=== PATIENT | male | born 1950 | race Asian ===

== ENCOUNTER 2017-02-13 18:34 | Inpatient (IN) | payer OTHER ==
--- NOTE | 2017-02-13 18:46 | EDPHY ---
H & P Time Seen by Provider: 02/13/17 18:46 HPI/ROS: CHIEF COMPLAINT: Arthralgias, neck pain, abdominal bloating HISTORY OF PRESENT ILLNESS: The patient presents to the ED for evaluation of several days of intermittent symptoms including abdominal bloating, diffuse body ache, jaw discomfort and subjective fevers. The patient has a history of diabetes. He denies any chest pain or shortness of breath. The patient reports he is visiting from [place]. He has been in the [place] for 2 months. There have been no sick contacts at home. The patient denies any urinary complaints. In the emergency department the patient complains primarily of low back pain. REVIEW OF SYSTEMS: A comprehensive 10 point review of systems is otherwise negative aside from elements mentioned in the history of present illness. Source: Patient Exam Limitations: No limitations - Medical/Surgical History PMH: Past medical history: Hypertension, diabetes - Family History Significant Family History: No pertinent family hx - Social History Smoking Status: Never smoked - Physical Exam Exam: General Appearance: Alert, no distress Eyes: Pupils equal and round no pallor or injection ENT, Mouth: Mucous membranes moist Respiratory: There are no retractions, lungs are clear to auscultation Cardiovascular: Regular rate and rhythm Gastrointestinal: Abdomen is soft and nontender, no masses, bowel sounds normal Neurological: A&O, normal motor function, normal sensory exam, normal cranial nerves Skin: Warm and dry, no rashes Musculoskeletal: Neck is supple nontender Extremities: symmetrical, full range of motion Constitutional: Initial Vital Signs Temperature (C) 37.1 C 02/13/17 18:43 Heart Rate 104 H 02/13/17 18:43 Respiratory Rate 20 02/13/17 18:43 Blood Pressure 152/95 H 02/13/17 18:43 O2 Sat (%) 98 02/13/17 18:43 O2 Delivery Mode Room Air Allergies/Adverse Reactions: No Known Allergies Allergy (Unverified 02/13/17 18:42) Home Medications: Medication Instructions Recorded Daonil 02/13/17 Galvus 02/13/17 Riomet 02/13/17 Medical Decision Making - Diagnostics EKG Interpretation: EKG: Complete interpretation has been separately recorded in the [employer] archive. Summary impression: Sinus rhythm, ST segment elevation noted in the inferior leads, slight reciprocal changes noted in leads I and aVL. No prior EKG to compare. Imaging Results: Imaging Impressions Chest X-Ray 02/13/17 19:28 Impression: Query airways disease. ED Course/Re-evaluation: The patient presents to the ED with a myriad of symptoms over the past several days including abdominal bloating, neck pain, back pain, leg pain and the subjective fevers. The patient had no complaints of chest pain or shortness of breath. The patient was noted to be afebrile upon arrival. The patient's EKG does demonstrate evidence of ST segment elevation. A cardiac alert was initiated immediately after his EKG was performed. The patient's initial troponin has returned at 36.3. The patient does have an elevated creatinine of 1.8. The patient has hyponatremia with a sodium of 115. The patient was seen in consultation by Dr. Norman Givens in the emergency department. Given the patient's renal failure and significant metabolic abnormality as well as the EKG and troponin changes which are consistent with an event several days old an additional workup was undertaken in the emergency department to determine the risk and benefit of an acute intervention. Consultation was made with Dr. Harden from the hospitalist service who is also aware of the patient. Dr. Givens has performed a bedside echocardiogram. His ejection fraction is above 40%. At this point time he believes the event is remote. He would like to have the patient heparinized and admitted to the intensive care unit under the care of the hospitalist service Differential Diagnosis: Differential diagnosis considered includes acute coronary syndrome, metabolic abnormality, perforated ulcer, critical anemia, renal failure, bacteremia, sepsis Critical Care Time: Critical care time exclusive of procedures and exclusive of the PA's time was 45 minutes, performed by myself, Frederci Head MD. The patient presents to the ED with an ischemic EKG, markedly abnormal troponin and critical sodium level. The patient required emergent consultation by Cardiology and will be admitted to the intensive care unit. - Data Points Laboratory Results: Laboratory Results 02/13/17 19:24 02/13/17 19:24 02/13/17 02/13/17 19:24 19:24 WBC 7.37 10^3/uL 10^3/uL (3.80-9.50) RBC 3.43 10^6/uL L 10^6/uL (4.40-6.38) Hgb 10.3 g/dL L g/dL (13.7-17.5) Hct 27.6 % L % (40.0-51.0) MCV 80.5 fL L fL (81.5-99.8) MCH 30.0 pg pg (27.9-34.1) MCHC 37.3 g/dL H g/dL (32.4-36.7) RDW 13.2 % % (11.5-15.2) Plt Count 151 10^3/uL 10^3/uL (150-400) MPV 11.2 fL fL (8.7-11.7) Neut % (Auto) 74.0 % % (39.3-74.2) Lymph % (Auto) 10.9 % L % (15.0-45.0) [place] % (Auto) 12.6 % % (4.5-13.0) Eos % (Auto) 1.8 % % (0.6-7.6) Baso % (Auto) 0.4 % % (0.3-1.7) Nucleat RBC Rel Count 0.0 % % (0.0-0.2) Absolute Neuts (auto) 5.46 10^3/uL 10^3/uL (1.70-6.50) Absolute Lymphs (auto) 0.80 10^3/uL L 10^3/uL (1.00-3.00) Absolute Monos (auto) 0.93 10^3/uL H 10^3/uL (0.30-0.80) Absolute Eos (auto) 0.13 10^3/uL 10^3/uL (0.03-0.40) Absolute Basos (auto) 0.03 10^3/uL 10^3/uL (0.02-0.10) Absolute Nucleated RBC 0.00 10^3/uL 10^3/uL (0-0.01) Immature Gran % 0.3 % % (0.0-1.1) Immature Gran # 0.02 10^3/uL 10^3/uL (0.00-0.10) Sodium 115 mEq/L L* mEq/L (134-144) Potassium 4.4 mEq/L mEq/L (3.5-5.2) Chloride 85 mEq/L L mEq/L (97-110) Carbon Dioxide 22 mEq/l mEq/l (22-31) Anion Gap 8 mEq/L mEq/L (8-16) BUN 14 mg/dL mg/dL (7-23) Creatinine 1.8 mg/dL H mg/dL (0.7-1.3) Estimated GFR 38 Glucose 105 mg/dL H mg/dL (70-100) Calcium 8.6 mg/dL mg/dL (8.5-10.4) Total Bilirubin 0.8 mg/dL mg/dL (0.1-1.4) Conjugated Bilirubin 0.3 mg/dL mg/dL (0.0-0.5) Unconjugated Bilirubin 0.5 mg/dL mg/dL (0.0-1.1) AST 126 IU/L H IU/L (17-59) ALT 31 IU/L IU/L (21-72) Alkaline Phosphatase 44 IU/L IU/L (38-126) Troponin I 36.200 ng/mL H ng/mL (0.000-0.034) Total Protein 5.9 g/dL L g/dL (6.3-8.2) Albumin 3.3 g/dL L g/dL (3.5-5.0) Medications Given: Discontinued Medications Aspirin (Aspirin) 324 mg PO EDNOW ONE Stop: 02/13/17 19:18 Last Admin: 02/13/17 19:27 Dose: 324 mg Departure - Departure Disposition: [facility] In[facility] Acute Clinical Impression: Hyponatremia, Acute inferior myocardial infarction, Renal failure Condition: Critical
--- NOTE | 2017-02-13 19:14 | CPEKG ---
Heart Rate: 94 RR Interval: 638 P-R Interval: 176 QRSD Interval: 84 QT Interval: 368 QTC Interval: 461 P [place]: 52 QRS [place]: -4 T Wave [place]: 58 EKG Severity - ABNORMAL ECG - EKG Impression: SINUS RHYTHM EKG Impression: INFERIOR INFARCT, ACUTE EKG Impression: CONSIDER POSTERIOR WALL INVOLVEMENT Electronically Signed By: Frederic Head 13-Feb-2017 21:13:51
[2017-02-13] MEDS ORDERED: ASPIRIN 81 MG CHEWABLE TAB PO ONE (19:17)
[2017-02-13 19:30] LABS: % IMMATURE GRANULYOCYTES 0.3 % (0.0-1.1); ABSOLUTE IMMATURE GRANULOCYTES 0.02 10^3/uL (0.00-0.10); ADD DIFF? NO; ADD MORPH? NO; ADD SCAN? NO; ATYPICAL LYMPHOCYTE FLAG 0 (0-99); FRAGMENT RBC FLAG 0 (0-99); HEMATOCRIT 27.6 % (40.0-51.0); HEMOGLOBIN 10.3 g/dL (13.7-17.5); LEFT SHIFT FLG 0 (0-99); LIPEMIA HEMOLYSIS FLAG 90 (0-99); MEAN CELL HEMOGLOBIN CONCENTR. 37.3 g/dL (32.4-36.7); MEAN CELL VOLUME 80.5 fL (81.5-99.8); MEAN PLATELET VOLUME 11.2 fL (8.7-11.7); PLATELET CLUMPS FLAG 0 (0-99); PLATELET COUNT 151 10^3/uL (150-400); RED BLOOD CELL COUNT 3.43 10^6/uL (4.40-6.38); RED CELL DISTRIBUTION WIDTH 13.2 % (11.5-15.2)
[2017-02-13] MEDS ORDERED: LIDOCAINE 1% 300 MG/30 ML SDV ONE (19:39)
[2017-02-13] MEDS ORDERED: fentaNYL 100 MCG/2 ML INJ ONE (19:39)
[2017-02-13] MEDS ORDERED: IOPAMIDOL (ISOVUE-370) 150 ML BTL IV ONE (19:40)
[2017-02-13] MEDS ORDERED: MIDAZOLAM 2 MG/2 ML VIAL ONE (19:40)
[2017-02-13 19:52] LABS: ALANINE AMINOTRANSFERASE 31 IU/L (21-72); ALBUMIN 3.3 g/dL (3.5-5.0); ALKALINE PHOSPHATASE 44 IU/L (38-126); ANION GAP 8 mEq/L (8-16); ASPARTATE AMINOTRANSFERASE 126 IU/L (17-59); BILIRUBIN,TOTAL 0.8 mg/dL (0.1-1.4); BILIRUBIN-CONJUGATED 0.3 mg/dL (0.0-0.5); BILIRUBIN-UNCONJUGATED 0.5 mg/dL (0.0-1.1); CALCIUM 8.6 mg/dL (8.5-10.4); CARBON DIOXIDE 22 mEq/l (22-31); CHLORIDE 85 mEq/L (97-110); CREATININE 1.8 mg/dL (0.7-1.3); GLOMERULAR FILTRATION RATE 38; POTASSIUM 4.4 mEq/L (3.5-5.2); TOTAL PROTEIN 5.9 g/dL (6.3-8.2)
[2017-02-13 20:19] LABS: GLUCOSE 105 mg/dL (70-100)
[2017-02-13 20:21] LABS: SODIUM 115 mEq/L (134-144)
[2017-02-13] MEDS ORDERED: HEPARIN 10,000 UNIT/10 ML MDV IVP PRN (21:16)
[2017-02-13] MEDS ORDERED: HEPARIN 10,000 UNIT/10 ML MDV IVP ONE (21:16)
[2017-02-13 21:31] LABS: INR 1.09 (0.83-1.16)
[2017-02-13 21:32] LABS: APTT 32.6 SEC (23.0-38.0)
--- NOTE | 2017-02-13 21:43 | GCON ---
[f rep st] CONSULTATION CHIEF COMPLAINT: We have been asked by Dr. Head to evaluate the patient as a cardiac alert. HISTORY OF PRESENT ILLNESS: Patient is a 66-year-old gentleman with risk factors including age, hype rtension, hyperlipidemia, and diabetes mellitus, who presented to the emergency department on with multiple aches and pains and generally not feeling well. The patient was in his usual state of health until the Friday prior to admission. At that time, he came down with what he thought was an upper gastrointestinal illness. He reported symptoms of upper chest discomfort extending into his arms, associated with nausea and belching. His symptoms continued throughout Friday and into Friday , and by Friday he was feeling generally much better. On Friday, he ended up falling on a futon and injured his hips and lower back resulting in multiple aches and pains, prompting him to seek furt her evaluation in the emergency department. In the emergency department, he had an EKG performed whi ch demonstrated sinus rhythm. Normal axis. Normal intervals. Inferior ST-segment elevation with de velopment of inferior Q-waves. His initial troponin was markedly elevated at 36. We were consulted to help in the further management of the patient. The patient denies a previous history of coronary artery disease. He does have multiple cardiac risk factors as noted above. The patient denies sympt oms of palpitations, orthopnea and PND. He has not had recurrent anginal symptoms since Friday when his initial symptomatology resolved. The patient denies a previous history of renal insufficiency. His last creatinine was 1.0 in November. PAST MEDICAL HISTORY: 1. Hypertension. 2. Hyperlipidemia. 3. Diabetes mellitus. MEDICATIONS: Please see medicine reconciliation form. ALLERGIES: No known drug allergies. SOCIAL HISTORY: Patient lives in [facility]. He came out to visit his son in [place]. He does not smoke . He denies problems with alcohol. FAMILY HISTORY: Noncontributory. REVIEW OF SYSTEMS: A 10-point review of systems is negative, except as noted in HPI. The patient do es report some calf discomfort with higher levels of exertion. PHYSICAL EXAMINATION: GENERAL: The patient is resting comfortably in bed. He does not appear to be in acute distress. VITAL SIGNS: Temperature is afebrile. Pulse is 99, blood pressure 134/83, resp iratory rate is 16, SaO2 is 100% on 2 L nasal cannula. HEENT: Normocephalic, atraumatic. Extraocul ar muscles intact. NECK: No JVD. No bruits. LUNGS: Clear to auscultation bilaterally. No crackl es auscultated. CARDIOVASCULAR: Regular rate and rhythm. S1, S2. No murmurs, rubs, or gallops autumn reciated. ABDOMEN: Soft, nontender. Normoactive bowel sounds. No hepatosplenomegaly. Aorta could not be adequately palpated. EXTREMITIES: No clubbing, cyanosis, or edema. SKIN: No evidence of r ashes. NEURO: Patient is awake, alert and oriented x3. LABORATORY: Sodium is 115, potassium 4.4, chloride 85, carbon dioxide 22, BUN 14, creatinine 1.8. A ST is elevated at 126, ALT is 31. Troponin is elevated at 36.2. White blood cell count is 7.37, hem oglobin 10.3, hematocrit 27.6, platelet count is 151. EKG demonstrates sinus rhythm with an evolving inferior myocardial infarction. Echocardiogram: Limited bedside echocardiogram demonstrated left ventricular ejection fraction appro ximately 40% with inferior inferoseptal and posterior hypokinesis. The apex had normal contractility . ASSESSMENT AND PLAN: Patient is a 66-year-old gentleman, who presents with an evolving inferior myoc ardial infarction. The onset of his infarction was likely Friday into Friday based on symptomatology and EKG findings. He is currently pain free. He denies symptoms of congestive heart failure. Revi ewed treatment strategies with the patient and his son, including going to the cardiac catheterizatio n laboratory as well as a more conservative management strategy with admitting to the hospital for ob servation and medical management with subsequent stress testing. Patient wished to pursue the more c onservative route. I think that is a reasonable strategy given his myocardial infarction is likely a lready been completed, and he has at risk for angiography given renal insufficiency. We will continu e to follow along with the patient. /[id number]/MODL
[2017-02-13] MEDS: HEPARIN/DEXTROSE 500 ML IV SCH (22:03)
[2017-02-13 22:10] LABS: CK-MB INTERPRETATION NEGATIVE (NEGATIVE)
[2017-02-13] MEDS: CARVEDILOL 3.125 MG TAB PO SCH (22:14)
[2017-02-13] MEDS ORDERED: CARBOXYMETHYLCELLULOSE 0.5% 0.4 ML DROPERETTE EACHEYE PRN (22:31)
[2017-02-13] MEDS ORDERED: SODIUM CHLORIDE 1,000 MG TAB PO ONE (22:34)
--- NOTE | 2017-02-13 22:39 | PDGENHP ---
History and Physical History and Physical: HISTORY AND PHYSICAL CC: Diffuse pains Please note that obtaining history from this patient is quite difficult and I am not sure that the information that we have from him in terms of history is entirely reliable. We have no available records as he is from [place]. HISTORY: This gentleman is visiting from [place] as he has family here in [place]. He has been in this country for about 6 weeks. He comes into the ER today with complaint of numerous aches and pains including neck chest abdomen legs. Some of these pains came within last there to as he had fallen a couple days ago and became trapped between a piece of furniture in wall in it took apparently about 50 minutes to get him extracted from that position. He does not feel that his any concerning injury and he does not have anything that sounds like skeletal pain. However he he also has been having significant discomfort in epigastrium and low sternal area that he calls a gas pain. He thinks this is from eating too much cauliflower. There was no nausea, shortness of breath, fever, or change in bowel habits and he has been eating well. Assessment here in the ER revealed area elevated cardiac troponin and abnormal EKG leading to a cardiac alert with ST elevations. In reviewing his story though his symptoms go back at least 4 days and have actually resolved at this time in terms of the symptoms that sound cardiac in nature. He has an echocardiogram with a reasonable ejection fraction at 45% and some other acute medical issues and it was elected not to take him to the angiography suite at this time. The patient says he otherwise feels fine. Among his medical issues is a low sodium level. He does take some hydrochlorothiazide, but has no prior history of low sodium that he knows of, no recent nausea vomiting or diarrhea, and says he has been eating normally recently. He has not noticed any swelling in his ankles are elsewhere and no orthopnea. In addition has been discovered that is high creatinine at 2 with a baseline of 1.0 as best we know. There is no previous history of renal disease but he is diabetic. ROS: A comprehensive 10 system review revealed no other significant findings. Notably despite all the digestive type symptoms, and the other discomforts he says he has had normal appetite for him and has been eating well. PAST MEDICAL HISTORY: Type 2 diabetes mellitus - notably the patient says that he controls this by eating a very good diabetic diet but while he is telling me this he is finishing a package of cookies that he just opened and 8 in its entirety. He also tells me that he can control his sugar by walking slower as he has been able to calculate that the faster he walks the higher the blood sugar becomes. He has used he says of Fitbit and EPS device to help figure this out. He does note that he has always refused and will continue to refuse to take insulin. The patient denies any history of heart disease, yet I notice that his medications include nitroglycerin, Lipitor, hydrochlorothiazide, and angiotensin receptor corey FAMILY MEDICAL HISTORY: Denies family heart history SOCIAL HISTORY: Here from [facility] initially visiting his daughter in [place] now visiting his son here in [place]. His son apparently is working on a post doctoral theses at this time. No tobacco MEDICATIONS: The patients list has been reconciled by our clinical pharmacist in the EMR. I have reviewed the list and ordered appropriate medicines. PHYSICAL EXAMINATION: Vital Signs: Some hypertension, otherwise stable without fever Knocker Out: Sinus rhythm with some ST elevations noted Examination: General: alert, oriented, good mentation, relaxed Skin: warm, dry, good color, no rash HEENT: normal Neck: no mass or jvd Resps: relaxed Lungs: clear breath sounds Heart: regular, no murmur Abdomen: soft, nondistended, nontender, +BS, no mass Upper Extremities: normal Lower Extremities: no edema, warm No Bleeding or bruising Neurologic: normal speech/language, normal assistant professor of life sciences, no focal weakness IV site: looks normal LABORATORY DATA: Troponin elevated at 37, CPK pending Creatinine elevated to with her reported as baseline of 1 Sodium is 119 Microcytic anemia with a hemoglobin of 10 RADIOLOGY STUDIES: Unremarkable chest x-ray with normal heart size and no heart failure or infiltrates 12 LEAD EKG: -Sinus rhythm with apparent a suggesting evolving acute inferior [place] ASSESSMENT: -subacute myocardial infarction, inferior with sinus rhythm and absence of heart failure. It appears his symptoms began probably 4 days ago -presumed acute renal failure but of really uncertain chronicity with a baseline creatinine of 1 from an unknown time in a diabetic -hyponatremia in a euvolemic patient taking hydrochlorothiazide -microcytic anemia of unknown chronicity or cause -type 2 diabetes mellitus on oral medications PLANS: -patient is admitted inpatient status to the intensive care unit at this time due to critical illness -Dr. Givens continue to follow patient from the cardiac standpoint. At this point the patient is reasonably stable and we can continue with beta corey, angiotensin corey, his nitroglycerin, and daily aspirin -at some point he will need to go for angiography if he will agree to that -for sodium for now start with oral fluid restriction and some oral sodium supplements, follow his sugars sodiums very closely and will hold hydrochlorothiazide, check urine sodium levels as a starting point; due to his use of hydrochlorothiazide I will delay ordering the urine sodium until he has been off the hydrochlorothiazide for day or two -check thyroid level -check iron levels and he will probably need other evaluation for his anemia beyond that and probably needs iron replacement -renal ultrasound and follow renal function closely. Due to his low sodium I am not giving him volume replacement trying to correct his sodium at this time. However if we get his sodium MAC in safer range it would be good to make sure that he is at least adequately hydrated to receive angiography dye for coronary angiography which is anticipated -follow and manage sugars as indicated by the numbers I have reviewed the patient's case in detail with Dr. Norman Givens and Frederic Head
[2017-02-13] MEDS ORDERED: ZOLPIDEM TARTRATE 5 MG TAB PO PRN (22:54)
[2017-02-13] MEDS ORDERED: ONDANSETRON 4 MG/2 ML VIAL IVP PRN (22:54)
[2017-02-13 23:58] LABS: CK-MB INTERPRETATION NEGATIVE (NEGATIVE)
[2017-02-14 00:59] LABS: ANION GAP 11 mEq/L (8-16); CALCIUM 7.5 mg/dL (8.5-10.4); CARBON DIOXIDE 19 mEq/l (22-31); CHLORIDE 92 mEq/L (97-110); CREATININE 1.6 mg/dL (0.7-1.3); GLOMERULAR FILTRATION RATE 43; GLUCOSE 82 mg/dL (70-100); POTASSIUM 3.8 mEq/L (3.5-5.2); SODIUM 122 mEq/L (134-144)
[2017-02-14 04:41] LABS: ALANINE AMINOTRANSFERASE 29 IU/L (21-72); ALBUMIN 3.1 g/dL (3.5-5.0); ALKALINE PHOSPHATASE 44 IU/L (38-126); ANION GAP 8 mEq/L (8-16); ASPARTATE AMINOTRANSFERASE 107 IU/L (17-59); BILIRUBIN,TOTAL 0.6 mg/dL (0.1-1.4); BILIRUBIN-CONJUGATED 0.4 mg/dL (0.0-0.5); BILIRUBIN-UNCONJUGATED 0.2 mg/dL (0.0-1.1); CALCIUM 7.8 mg/dL (8.5-10.4); CARBON DIOXIDE 21 mEq/l (22-31); CHLORIDE 87 mEq/L (97-110); CHOLESTEROL 84 mg/dL (140-220); CHOLESTEROL/HDL RATIO 2.71 RATIO (1.00-4.97); CREATININE 1.8 mg/dL (0.7-1.3); GLOMERULAR FILTRATION RATE 38; GLUCOSE 114 mg/dL (70-100); HIGH DENSITY LIPOPROTEIN 31 mg/dL (40-65); LDL/HDL RATIO 1.13 RATIO (1.00-3.64); LOW DENSITY LIPOPROTEIN 35 mg/dL (80-100); MAGNESIUM 2.1 mg/dL (1.6-2.3); NON-HIGH DENSITY LIPOPROTEIN 53 mg/dL (90-129); POTASSIUM 3.8 mEq/L (3.5-5.2); TOTAL PROTEIN 5.4 g/dL (6.3-8.2); TRIGLYCERIDE 90 mg/dL (40-150); VERY LOW DENSITY LIPOPROTEINS 18 mg/dL (8-25)
[2017-02-14 04:51] LABS: % SATURATION 9 % (20-55); TOTAL IRON BINDING CAPACITY 251 ug/dL (260-490)
[2017-02-14 05:02] LABS: SODIUM 116 mEq/L (134-144)
[2017-02-14] MEDS ORDERED: HEPARIN 5,000 UNIT/0.5 ML SYR SC SCH (06:00)
[2017-02-14] MEDS: CARVEDILOL 3.125 MG TAB PO SCH ×2 (08:20→18:08)
[2017-02-14] MEDS: LOSARTAN POTASSIUM 50 MG TAB PO SCH (08:21)
[2017-02-14] MEDS: ASCORBIC ACID 500 MG TAB PO SCH (08:21)
[2017-02-14] MEDS: MULTIVITAMINS 1 EACH TAB PO SCH (08:21)
--- NOTE | 2017-02-14 08:51 | CPEKG ---
Heart Rate: 89 RR Interval: 674 P-R Interval: 172 QRSD Interval: 86 QT Interval: 364 QTC Interval: 443 P [place]: 63 QRS [place]: -13 T Wave [place]: 83 EKG Severity - ABNORMAL ECG - EKG Impression: SINUS RHYTHM EKG Impression: INFERIOR INFARCT, recent EKG Impression: CONSIDER POSTERIOR WALL INVOLVEMENT Electronically Signed By: Kavin Nichols 14-Feb-2017 10:34:46
[2017-02-14] MEDS ORDERED: PERFLUTREN LIPID MICROSPHERES 1.1 MG/ML VIAL IV ONE (09:00)
[2017-02-14] MEDS: ACETAMINOPHEN 325 MG TAB PO PRN (09:08)
--- NOTE | 2017-02-14 09:56 | PDMN ---
Medical Necessity Medical necessity: Patient [place] [facility] My[place] Infarction - (subacute inf STEMI; troponin 39/+ CK-MB;/pain began 4 days prior; presumed ARF/Creat 1.8/baseline 1.0; hyponatremia; anemia, type 2 DM; anticipated LOS > 2 midnights for renal testing, poss cardiac angio, ongoing medical mgmt.)
[2017-02-14 11:03] LABS: ANION GAP 9 mEq/L (8-16); CALCIUM 8.3 mg/dL (8.5-10.4); CARBON DIOXIDE 21 mEq/l (22-31); CHLORIDE 86 mEq/L (97-110); CREATININE 1.9 mg/dL (0.7-1.3); GLOMERULAR FILTRATION RATE 36; GLUCOSE 81 mg/dL (70-100)
[2017-02-14 11:04] LABS: SODIUM 116 mEq/L (134-144)
[2017-02-14 11:16] LABS: POTASSIUM 4.2 mEq/L (3.5-5.2)
[2017-02-14] MEDS: [UNRECOGNIZED DRUG - OTHER] PO SCH ×2 (11:24→13:48)
[2017-02-14] MEDS ORDERED: [UNRECOGNIZED DRUG - OTHER] PO SCH (12:00)
[2017-02-14] MEDS ORDERED: METFORMIN PO SCH (12:00)
[2017-02-14] MEDS: NITROGLYCERIN PO SCH ×2 (12:07→18:08)
[2017-02-14 12:45] LABS: ANION GAP 11 mEq/L (8-16); CALCIUM 8.2 mg/dL (8.5-10.4); CARBON DIOXIDE 20 mEq/l (22-31); CHLORIDE 85 mEq/L (97-110); CREATININE 1.9 mg/dL (0.7-1.3); GLOMERULAR FILTRATION RATE 36; GLUCOSE 97 mg/dL (70-100); POTASSIUM 4.5 mEq/L (3.5-5.2)
[2017-02-14 12:48] LABS: SODIUM 116 mEq/L (134-144)
--- NOTE | 2017-02-14 13:43 | SOAPPROG ---
WANDY Progress Note Assessment/Plan: 1. IMI - Pt presented with an evolving inferior ME. His event was likely on 02/09 into 02/10 based on history. He was not taken to the catheterization laboratory as he denied symptoms of recurrent angina/CHF and had acute renal insufficiency. Peak CPK was 2047 and has trended down. Peak Troponin was 39.8. LVEF = 35 to 40% with inferior hypokinesis. Pt denies symptoms of angina and CHF. No significant arrhythmias on telemetry monitoring. --> continue asa, plavix, coreg, losartan, and atorvastatin. --> continue heparin for an additional 24 hours --> consider stress test for risk stratification. 2. HTN - BP well controlled on coreg and losartan. --> continue current therapy 3. Hyperlidemia - Pt is at goal on lipitor. --> continue current therapy 4. DM -appreciate hospitalist input 5. BO - appreciate hospitalist input. Consider nephrology consult Subjective: No chest pain No orthopnea or PND No significant arrhythmias overnight Objective: Vital Signs Temp Pulse Resp BP Pulse Ox 36.7 C 80 16 114/77 100 02/14/17 08:00 02/14/17 12:00 02/14/17 12:00 02/14/17 12:00 02/14/17 12:00 Laboratory Results 02/14/17 12:08 02/13/17 02/14/17 02/15/17 05:59 05:59 05:59 Intake Total 559 120 Output Total 725 Balance -166 120 PT 14.0 SEC (12.0-15.0) 02/13/17 19:24 INR 1.09 (0.83-1.16) 02/13/17 19:24 Physical Exam - Physical Exam General Appearance: alert, no apparent distress Respiratory: lungs clear Cardiac/Chest: regular rate, rhythm, systolic murmur Abdomen: non-tender, soft Skin: normal color Extremities: No pedal edema Neuro/Psych: alert ICD10 Worksheet Patient Problems: Problems Problem Status Onset Acute inferior myocardial infarction Acute Hyponatremia Acute Renal failure Acute
--- NOTE | 2017-02-14 14:11 | CPEKG ---
Heart Rate: 80 RR Interval: 750 P-R Interval: 158 QRSD Interval: 84 QT Interval: 384 QTC Interval: 443 P [place]: -9 QRS [place]: -13 EKG Severity - ABNORMAL ECG - EKG Impression: SINUS RHYTHM EKG Impression: INFERIOR INFARCT, recent EKG Impression: CONSIDER POSTERIOR WALL INVOLVEMENT Electronically Signed By: Kavin Nichols 15-Feb-2017 09:15:35
--- NOTE | 2017-02-14 14:14 | GCON ---
[f rep st] CONSULTATION BOARD CERTIFIED ORTHODONTIST CONSULTATION REASON FOR ADMISSION: Subacute myocardial infarction. HISTORY OF PRESENT ILLNESS: The patient is a very pleasant, 66-year-old male, who is originally from [place]. He has a past medical history including non-insulin diabetes, hypertension, hypercholesterole nehemiah, and possible coronary artery disease. He presents with complaints of chest pain. He is currently visiting the [facility]. He has been in the country for approximately 6 weeks. He was seen in the emergency room and subsequently admitted with the diagnosis of acute SC, currently sitting up in a c hair, resting comfortably. He is currently pain free. PAST MEDICAL HISTORY: As above. ALLERGIES: No known allergies to medications. SOCIAL HISTORY: No history of tobacco use. No history of alcohol use. He is visiting from [place]. CURRENT MEDICATIONS: Include Tylenol, vitamin C, aspirin, atorvastatin, Coreg, Galvus, Daonil, hepa rin, losartan, nitroglycerin, Definity, Zofran, and Ambien. PHYSICAL EXAM: VITAL SIGNS: Blood pressure is 96/62, pulse 85, respirations 17, temperature 36.7, ox ygen saturation 100% on room air. GENERAL: He is a mildly overweight, but very pleasant elderly male, who is resting comfortably, in no acute distress. HEENT: Eyes are PERRLA, EOMI. Throat shows no eryt lalita or tonsillar hypertrophy. NECK: Supple. There is no cervical adenopathy. HEART: Regular rate and rhythm with a 2/6 systolic murmur at left sternal border without radiation. LUNGS: Showed diminished breath sounds, but no wheeze. ABDOMEN: Soft, nontender. Bowel sounds are present in all 4 quadrants. EXTREMITIES: No clubbing, cyanosis, or edema. LABORATORIES: White count 7.3, hemoglobin 10, hematocrit 27, platelet count is 151. Sodium 116, pota ssium 4.2, chloride 86, CO2 21, BUN 14, creatinine 1.9, glucose is 137. Troponins are elevated at 3 8.6. Chest x-ray: Shows some mild peribronchial thickening. IMPRESSION: 1. Acute myocardial infarction. 2. Diabetes. 3. Acute renal failure. 4. Hyponatremia. RECOMMENDATIONS: 1. Agree with cardiology consult. 2. Agree with renal ultrasound. 3. Deep vein thrombosis and pulmonary embolus prophylaxis. 4. Stress ulcer prophylaxis. 5. Agree with beta corey, angiotensin converting enzyme inhibitor, nitroglycerin, and aspirin. 6. PT and OT. /[id number]/MODL
--- NOTE | 2017-02-14 14:31 | ASMTCMCOM ---
CM Note CM Note Notes: Chart reviewed, case discussed in rounds. Patient visiting from [place] and suffered VA with ARF. No angiogram secondary to renal insufficiency. Medical management at this point in time. Good family support, independent prior to admission. No identifiable needs at this point. CM to follow should needs arise. Date Signed: 02/14/2017 02:31 PM Electronically Signed By:Smitha Damon RN
--- NOTE | 2017-02-14 15:42 | HOSPPROG ---
Hospitalist Progress Note Assessment/Plan: 66 yo M w inferior STEMI STEMI: presented after completion w q waves already present per pt and cardiology, medical management stratehy chosed asa/statin/bb/arb on heparin gtt hyponatremia: urine lytes ordered suspect he is chronically low given absence of sx has been on hctz for > 30 years follow fluid restrict proph: heparin gtt dm: hold po meds start lispro ss dispo: inpt Subjective: case d/w marin. denies further CP. no sob. ekg w ongoing inferior ST elevations (interp by me) Objective: Vital Signs Temp Pulse Resp BP Pulse Ox 36.7 C 84 15 103/59 L 99 02/14/17 08:00 02/14/17 14:00 02/14/17 14:00 02/14/17 14:00 02/14/17 14:00 Laboratory Results 02/14/17 12:08 02/13/17 02/14/17 02/15/17 05:59 05:59 05:59 Intake Total 559 120 Output Total 725 Balance -166 120 PT 14.0 SEC (12.0-15.0) 02/13/17 19:24 INR 1.09 (0.83-1.16) 02/13/17 19:24 - Physical Exam Constitutional: no apparent distress, appears nourished Eyes: PERRL, anicteric sclera Ears, Nose, Mouth, Throat: moist mucous membranes, hearing normal Cardiovascular: regular rate and rhythym, no murmur, rub, or gallop Respiratory: no respiratory distress, no rales or rhonchi Gastrointestinal: normoactive bowel sounds, soft, non-tender abdomen Genitourinary: no bladder fullness, No esparza in urethra Skin: warm, normal color Musculoskeletal: full muscle strength, no muscle tenderness Neurologic: AAOx3 ICD10 Worksheet Patient Problems: Problems Problem Status Onset Acute inferior myocardial infarction Acute Hyponatremia Acute Renal failure Acute
--- NOTE | 2017-02-14 15:44 | PDCONSULT ---
Piping Manager Note: Assessment/Plan: MARTA: Cr 1.9, baseline 1.0 from 11/2016, no history of renal disease. Renal US wnl. - Will check urine lytes, urine Cr and urine PCR. - No need for HD. - Not giving IVFs given his hyponatremia as below. - Will continue to monitor. - Avoid hypotension, MOM, morphine, demerol, NSAIDs, contrast, aminoglycosides , fleets, and other nephrotoxins. Hyponatremia: Na 115 on presentation, improved briefly to 122 but now stable at 116 today. - Will check urine sodium and urine osm today as well as tomorrow. - HCTZ on hold. - Will continue 1200ml fluid restriction. - Will start on salt tabs 1g TID with meals. - Will continue to monitor sodium q6h for now. Thank you for the interesting consult. Nephrology will continue to follow, please call if you have any additional questions or concerns. H & P Stated Complaint: cough/body aches jaw and bilat arm/back pain n/v last week Time Seen by Provider: 02/13/17 18:46 HPI/ROS: HPI: Mr. Stephens is a 66 yo M visiting from [facility] with h/o HTN and DM for 30+ years who presented with numerous aches and pains. Pt had been feeling fine until Friday, after having a meal that he feels included too much cauliflower, he started to have abdominal discomfort and bloating along with belching, thought it was gas. It took a few days for it to subside but it did improve by Friday. On that day, he had an accident with a futon and got stuck between futon and wall for about 20 minutes. He came in do to various pains, EKG showed inferior PA. Cardiology has seen patient, planning on conservative treatment for now and no cardiac cath, although this will be needed at some point in the future. His Cr was found to be 1.9 and Na 115 at presentation. Pt states that he has never had hyponatremia or a renal issue, labs done in [place] showed Cr of 1.0, Na of 137, and no proteinuria or hematuria in 11/2016. His Hgb A1c had previously had been well controlled but was up to 8.0 in 11/2016 , he does not take insulin. He generally follows a low salt diet, son notes that he has been drinking a lot more water this week. Pt denies any cardiac issues but notes that several years ago he had an abnormal stress test. ROS: Positive per HPI, rest of 10-point ROS negative - Personal History Current Tetanus/Diphtheria Vaccine: Yes - Medical/Surgical History Hx Asthma: No Hx Chronic Respiratory Disease: No Hx Diabetes: Yes Hx Cardiac Disease: No Hx Renal Disease: No Hx Cirrhosis: No Hx Alcoholism: No Hx HIV/AIDS: No Hx Splenectomy or Spleen Trauma: No Other PMH: diabetes, HTN, hyperlipidemia, varicose veins - Family History Significant Family History: No: Renal disease - Social History Smoking Status: Never smoked - Physical Exam Exam: General: alert and oriented, no acute distress Eyes: EOMI, PERRL OP: Clear, MMM Neck: supple, no thyromegaly CV: RRR, +2/4 radial and dorsalis pedis pulses, no peripheral edema Resp: CTA bilat, nonlabored respirations Abd: Soft, NT/ND Neuro: CN II-XII grossly intact, no asterixis Psych: cooperative, appropriate mood and affect Skin: C/D/I, no rash Constitutional: Initial Vital Signs Temperature (C) 37.1 C 02/13/17 18:43 Heart Rate 104 H 02/13/17 18:43 Respiratory Rate 20 02/13/17 18:43 Blood Pressure 152/95 H 02/13/17 18:43 O2 Sat (%) 98 02/13/17 18:43 O2 Delivery Mode Room Air Allergies/Adverse Reactions: No Known Allergies Allergy (Unverified 02/13/17 18:42) Home Medications: Medication Instructions Recorded Ascorbic Acid [Vitamin C 500 mg 500 mg PO DAILY 02/13/17 (*)] Atorvastatin 10mg/Aspirin 75mg 1 tab PO HS 02/13/17 Carboxymethylcellulose 0.5% 1 drops EACHEYE PRN PRN 02/13/17 [Refresh Plus Drops 0.5%] Daonil 5 mg PO 11,17 02/13/17 Galvus 50 mg PO 12,18 02/13/17 Herbals/Supplements -Info Only 1 ea PO DAILY 02/13/17 Losartan/Hctz 50/12.5 [Hyzaar 1 tab PO HS 02/13/17 50/12.5MG (*)] Multivitamins [Multivitamin (*)] 1 each PO DAILY 02/13/17 Nitroglycerin 2.6mg 2.6 mg PO 12,18 02/13/17 Riomet 1,000 mg PO 12,18 02/13/17 Lab and Imaging 02/13/17 19:24 02/14/17 12:08 WBC 7.37 10^3/uL (3.80-9.50) 02/13/17 19:24 RBC 3.43 10^6/uL (4.40-6.38) L 02/13/17 19:24 Hgb 10.3 g/dL (13.7-17.5) L 02/13/17 19:24 POC Hgb 10.5 gm/dL (13.7-17.5) L 02/13/17 20:02 Hct 27.6 % (40.0-51.0) L 02/13/17 19:24 POC Hct 31 % (40-51) L 02/13/17 20:02 MCV 80.5 fL (81.5-99.8) L 02/13/17 19:24 MCH 30.0 pg (27.9-34.1) 02/13/17 19:24 MCHC 37.3 g/dL (32.4-36.7) H 02/13/17 19: RDW 13.2 % (11.5-15.2) 02/13/17 19:24 Plt Count 151 10^3/uL (150-400) 02/13/17 19:24 MPV 11.2 fL (8.7-11.7) 02/13/17 19:24 Neut % (Auto) 74.0 % (39.3-74.2) 02/13/17 19:24 Lymph % (Auto) 10.9 % (15.0-45.0) L 02/13/17 19:24 Cobb % (Auto) 12.6 % (4.5-13.0) 02/13/17 19:24 Eos % (Auto) 1.8 % (0.6-7.6) 02/13/17 19:24 Baso % (Auto) 0.4 % (0.3-1.7) 02/13/17 19:24 Nucleat RBC Rel Count 0.0 % (0.0-0.2) 02/13/17 19:24 Absolute Neuts (auto) 5.46 10^3/uL (1.70-6.50) 02/13/17 19:24 Absolute Lymphs (auto) 0.80 10^3/uL (1.00-3.00) L 02/13/17 19:24 Absolute Monos (auto) 0.93 10^3/uL (0.30-0.80) H 02/13/17 19:24 Absolute Eos (auto) 0.13 10^3/uL (0.03-0.40) 02/13/17 19:24 Absolute Basos (auto) 0.03 10^3/uL (0.02-0.10) 02/13/17 19:24 Absolute Nucleated RBC 0.00 10^3/uL (0-0.01) 02/13/17 19:24 Immature Gran % 0.3 % (0.0-1.1) 02/13/17 19:24 Immature Gran # 0.02 10^3/uL (0.00-0.10) 02/13/17 19:24 PT 14.0 SEC (12.0-15.0) 02/13/17 19:24 INR 1.09 (0.83-1.16) 02/13/17 19:24 APTT 32.6 SEC (23.0-38.0) 02/13/17 19:24 Heparin Anti-Xa, Unfract 0.77 IU/mL (0.32-0.67) H* 02/14/17 10:15 Turbidity MERCHANDISING CONSULTANT 02/14/17 08:20 POC Sodium 119 mEq/L (134-144) L* 02/13/17 20:02 Sodium 116 mEq/L (134-144) L* 02/14/17 12:08 POC Potassium 4.4 mEq/L (3.3-5.0) 02/13/17 20:02 Potassium 4.5 mEq/L (3.5-5.2) 02/14/17 12:08 POC Chloride 85 mEq/L (97-110) L 02/13/17 20:02 Chloride 85 mEq/L (97-110) L 02/14/17 12:08 Carbon Dioxide 20 mEq/l (22-31) L 02/14/17 12:08 Anion Gap 11 mEq/L (8-16) 02/14/17 12:08 POC BUN 13 mg/dL (7-23) 02/13/17 20:02 BUN 15 mg/dL (7-23) 02/14/17 12:08 Creatinine 1.9 mg/dL (0.7-1.3) H 02/14/17 12:08 POC Creatinine 2.0 mg/dL (0.7-1.3) H 02/13/17 20:02 Estimated GFR 36 02/14/17 12:08 Glucose 97 mg/dL (70-100) 02/14/17 12:08 POC Glucose 114 mg/dL (70-100) H 02/14/17 14:36 Calcium 8.2 mg/dL (8.5-10.4) L 02/14/17 12:08 Magnesium 2.1 mg/dL (1.6-2.3) 02/14/17 04:00 Iron 22.0 mcg/dL (49.0-199.0) L 02/14/17 04:00 TIBC 251 ug/dL (260-490) L 02/14/17 04:00 Iron Saturation 9 % (20-55) L 02/14/17 04:00 Ferritin 101.0 ng/mL (17.9-464.0) 02/14/17 04:00 Total Bilirubin 0.6 mg/dL (0.1-1.4) 02/14/17 04:00 Conjugated Bilirubin 0.4 mg/dL (0.0-0.5) 02/14/17 04:00 Unconjugated Bilirubin 0.2 mg/dL (0.0-1.1) 02/14/17 04:00 AST 107 IU/L (17-59) H 02/14/17 04:00 ALT 29 IU/L (21-72) 02/14/17 04:00 Alkaline Phosphatase 44 IU/L (38-126) 02/14/17 04:00 Creatine Kinase 2022 IU/L (0-224) H 02/13/17 22:20 CK-MB (CK-2) Fraction 22.10 ng/mL (0.00-3.19) H 02/13/17 22:20 CK-MB (CK-2) % 1.1 % (0.0-4.0) 02/13/17 22:20 Creatine Kinase Interp NEGATIVE (NEGATIVE) 02/13/17 22:20 Troponin I 38.600 ng/mL (0.000-0.034) H 02/14/17 06:00 Total Protein 5.4 g/dL (6.3-8.2) L 02/14/17 04:00 Albumin 3.1 g/dL (3.5-5.0) L 02/14/17 04:00 Triglycerides 90 mg/dL (40-150) 02/14/17 04:00 Cholesterol 84 mg/dL (140-220) L 02/14/17 04:00 Cholesterol Risk Factr 0.5 (0.2-1.0) 02/14/17 04:00 LDL Cholesterol, Calc 35 mg/dL (80-100) L 02/14/17 04:00 LDL Risk Factor 0.6 (0.2-1.0) 02/14/17 04:00 VLDL Cholesterol 18 mg/dL (8-25) 02/14/17 04:00 Non-HDL Cholesterol 53 mg/dL (90-129) L 02/14/17 04:00 HDL Cholesterol 31 mg/dL (40-65) L 02/14/17 04:00 LDL/HDL Ratio 1.13 RATIO (1.00-3.64) 02/14/17 04:00 Cholesterol/HDL Ratio 2.71 RATIO (1.00-4.97) 02/14/17 04:00 TSH 2.180 uIU/mL (0.465-4.680) 02/14/17 04:00 Specimen Hemolysis MERCHANDISING CONSULTANT 02/14/17 08:20 EKG Interpretation: Positive for: ST elevation (inferior leads)
[2017-02-14] MEDS: HEPARIN/DEXTROSE 500 ML IV SCH (15:46)
[2017-02-14] MEDS ORDERED: D50W 25 GM/50 ML SYR IVP PRN (15:49)
[2017-02-14] MEDS ORDERED: D10W 250 ML PRN HYPOGLYCEMIA IV (16:00)
[2017-02-14 16:30] LABS: ANION GAP 10 mEq/L (8-16); CALCIUM 7.6 mg/dL (8.5-10.4); CARBON DIOXIDE 20 mEq/l (22-31); CHLORIDE 86 mEq/L (97-110); CREATININE 1.8 mg/dL (0.7-1.3); GLOMERULAR FILTRATION RATE 38; GLUCOSE 128 mg/dL (70-100); POTASSIUM 4.3 mEq/L (3.5-5.2)
[2017-02-14 16:40] LABS: SODIUM 116 mEq/L (134-144)
[2017-02-14] MEDS: SODIUM CHLORIDE 1,000 MG TAB PO SCH ×2 (16:50→18:08)
--- NOTE | 2017-02-14 17:50 | ECHO ---
[email or web address] [address] [address] Main: [phone] Fax: Transthoracic Echocardiogram Name: GENESIS PETERSON MR#: [id number] Study Date: 02/14/2017 Study Time: 09:46 AM Date of : 1950 Age: 66 year(s) Height: 175.3 cm (69 in.) Weight: 83.46 kg (184 lb.) BSA: 1.99 m2 Gender: Male Examination: Echo with Definity Indication: evaluate LVFX and WMA Image Quality: Adequate Contrast: I.V. dose of Definity was administered to improve endocardial border definition. Requested by: Norman Chris BP: 105 mmHg/53 mmHg Heart Rate: Rhythm: Indication: evaluate LVFX and WMA Procedure Staff Control Panel Assembler: Mahi Walter Reading Physician: Denver Alejandre Requesting Provider: Conclusions: Normal size left ventricle. Borderline concentric LV hypertrophy. EF is 34 %. The basal inferoseptal, basal inferolateral, mid inferoseptal and mid inferolateral wall segments are hypokinetic. The basal inferior, mid inferior and apical inferior wall segments are akinetic. The left atrium is mildly to moderately dilated. There is an echodensity at the base of the LA. This may represent artifact, mass or thrombus. Mild mitral valve regurgitation is present. Mild tricuspid regurgitation is present. The pulmonary artery pressure is normal. Measurements: Chambers Valvular Assessment AV/MV Valvular Assessment TV/PV Normal Normal Normal Name Value Range Name Value Range Name Value Range Ao Tonya (MM): 3.4 cm (2.2 cm-3.7 AV Vmax: 1.00 m/s (1 m/s-1.7 TR Vmax: 2.14 mm/s ( - ) cm) m/s) TR PGmax: 18 mmHg ( - ) IVSd (2D): 1.2 cm (0.6 cm-1.1 AV maxP mmHg ( - ) syst. PAP: 23 mmHg ( - ) cm) LVOT Vmax: 0.73 m/s (0.7 m/s-1.1 PV Vmax: 0.64 m/s (0.6 m/s-0.9 LVDd (2D): 5.0 cm (4.2 cm-5.9 m/s) m/s) cm) MV E Vmax: 0.57 m/s ( - ) PV PGmax: 2 mmHg ( - ) LVDs (2D): 4.1 cm (2.1 cm-4 MV A Vmax: 0.82 m/s ( - ) cm) MV E/A: 0.70 ( - ) LVPWd (2D): 1.1 cm (0.6 cm-1 cm) LVEF (MOD4): 34 % (>=55 %) RVDd(2D): 3.1 cm (1.9 cm-3.8 cmmm) Continued Measurements: Patient: GENESIS PETERSON Study Date: 02/14/2017 Page 1 of 2 09:46 AM Chambers Valvular Assessment AV/MV Valvular Assessment TV/PV Name Value Name Value Name Value LADs Lon.7 cm MV DecTime: 197 m/s CVP (est.): 5 mmHg LA Area: 18.2 cm2 MV E' Septal: 0.04 m/s TAPSE: 1.0 cm MV E/E' Septal: 16.20 MV E/E' Lateral: 10.10 MR Vena Contracta: 0.4 cm Additional Vessels Name Value Ao Ascendin.1 cm Findings: Left Ventricle: Normal size left ventricle. Borderline concentric LV hypertrophy. Moderately reduced systolic LV function. EF is 34 %. Regional wall motion abnormality noted. The basal inferoseptal, basal inferolateral, mid inferoseptal and mid inferolateral wall segments are hypokinetic. The basal inferior, mid inferior and apical inferior wall segments are akinetic. All remaining scored wall segments are normal. Grade 1 diastolic dysfunction (abnormal relaxation). 0.165mg of definity administered. Right Ventricle: Normal size right ventricle. Mildly reduced RV function. Left Atrium: The left atrium is mildly to moderately dilated. A possible thrombus is noted in the left atrium. There is an echodensity at the base of the LA. This may represent artifact, mass or thrombus. Right Atrium: The right atrium is normal in size. Mitral Valve: The mitral valve is normal in appearance and function. Mild mitral valve regurgitation is present. Aortic Valve: The aortic valve is tri-leaflet. There is no aortic valve regurgitation. Tricuspid Valve: The tricuspid valve appears normal. Mild tricuspid regurgitation is present. The pulmonary artery pressure is normal. Pulmonic Valve: The pulmonic valve is normal in appearance and function. Trivial pulmonic valve regurgitation. Aorta: Normal size aortic root measuring 3.4 cm. Pericardium: No pericardial effusion. (No Signature Object) Wall Motion Scores -1 - Not Scored, 0 - Unknown, 1 - Normal or hyperkinesia, 2 - Hypokinesia, 3 - Akinesia, 4 - Dyskinesia, 5 - Aneurysm Patient: GENESIS PETERSON Study Date: 02/14/2017 Page 2 of 2 09:46 AM [id number]
[2017-02-14] MEDS: INSULIN LISPRO 100 UNIT/ML SC SCH ×2 (18:07→23:10)
[2017-02-14] MEDS: ATORVASTATIN PO SCH (20:26)
[2017-02-14] MEDS: [UNRECOGNIZED DRUG - OTHER] PO SCH (20:26)
[2017-02-14 21:00] LABS: ANION GAP 7 mEq/L (8-16); CALCIUM 7.1 mg/dL (8.5-10.4); CARBON DIOXIDE 20 mEq/l (22-31); CHLORIDE 91 mEq/L (97-110); CREATININE 1.7 mg/dL (0.7-1.3); GLOMERULAR FILTRATION RATE 40; GLUCOSE 124 mg/dL (70-100)
[2017-02-14 21:03] LABS: SODIUM 118 mEq/L (134-144)
[2017-02-15 01:38] LABS: RANDOM URINE PROTEIN 17 mg/dL (0-11)
[2017-02-15 01:46] LABS: COLOR YELLOW; LEUKOCYTE ESTERASE,URINE NEGATIVE (NEGATIVE); NITRITE,URINE NEGATIVE (NEGATIVE)
[2017-02-15] MEDS: ACETAMINOPHEN 325 MG TAB PO PRN ×3 (06:40→23:55)
[2017-02-15] MEDS: SODIUM CHLORIDE 1,000 MG TAB PO SCH ×3 (08:39→18:29)
[2017-02-15] MEDS: CLOPIDOGREL BISULFATE 75 MG TAB PO SCH (08:39)
[2017-02-15] MEDS: CARVEDILOL 3.125 MG TAB PO SCH ×2 (08:39→18:29)
[2017-02-15] MEDS: ASCORBIC ACID 500 MG TAB PO SCH (08:40)
[2017-02-15] MEDS: LOSARTAN POTASSIUM 50 MG TAB PO SCH (08:40)
[2017-02-15] MEDS: MULTIVITAMINS 1 EACH TAB PO SCH (08:40)
[2017-02-15] MEDS ORDERED: ASPIRIN 81 MG CHEWABLE TAB PO SCH (09:00)
--- NOTE | 2017-02-15 09:11 | PDINTPN ---
Dry Man Progress Note Assessment/Plan: Assessment/Plan: * STEMI * Acute renal failure-per Nephrology * Diabetes-well controlled * Hyponatremia-improved. Sodium up to 119. -per Nephrology * VTE prophylaxis * Stress ulcer prophylaxis * PT/OT * Out of bed Subjective: Resting comfortably watching cricket. Comfortable. No chest pain. Objective: Vital Signs Temp Pulse Resp BP Pulse Ox 37.2 C 82 20 108/51 L 98 02/15/17 04:00 02/15/17 08:39 02/15/17 06:00 02/15/17 08:40 02/15/17 06:00 Laboratory Results 02/15/17 04:15 02/15/17 04:15 02/14/17 02/15/17 02/16/17 05:59 05:59 05:59 Intake Total 559 1850 Output Total 725 1250 Balance -166 600 PT 14.0 SEC (12.0-15.0) 02/13/17 19:24 INR 1.09 (0.83-1.16) 02/13/17 19:24 Physical Exam - Physical Exam General Appearance: alert, no apparent distress EENT: PERRL/EOMI, normal ENT inspection Neck: non-tender, full range of motion, supple, normal inspection Respiratory: chest non-tender, lungs clear, normal breath sounds Cardiac/Chest: normal peripheral pulses, regular rate, rhythm Peripheral Pulses: 2+: carotid (R), carotid (L), femoral (R), femoral (L), dorsalis-pedis (R), dorsalis-pedis (L) Abdomen: normal bowel sounds, non-tender, soft Male Genitalia: deferred Rectal: deferred Skin: normal color, warm/dry Extremities: normal range of motion, non-tender, normal inspection, normal capillary refill Neuro/Psych: no motor/sensory deficits, alert, normal mood/affect, oriented x 3 ICD10 Worksheet Patient Problems: Problems Problem Status Onset Acute inferior myocardial infarction Acute Hyponatremia Acute Renal failure Acute
[2017-02-15] MEDS: HEPARIN/DEXTROSE 500 ML IV SCH (09:16)
--- NOTE | 2017-02-15 09:36 | SOAPPROG ---
SOAP Progress Note Assessment/Plan: Assessment: SOAP Progress Note Assessment/Plan: 1. IMI - Pt presented with an evolving inferior [place]. His event was likely on 02/09 into 02/10 based on history. He was not taken to the catheterization laboratory as he denied symptoms of recurrent angina/CHF and had acute renal insufficiency. Peak CPK was 2046 and has trended down. Peak Troponin was 39.8. LVEF = 35 to 40% with inferior hypokinesis. Pt denies symptoms of angina and CHF. No significant arrhythmias on telemetry monitoring. tolerating meds..ok to tx to floor today.will d/c heparin drip today --> continue asa, plavix, coreg, losartan, and atorvastatin. --> consider stress test for risk stratification. 2. HTN - BP well controlled on coreg and losartan. --> continue current therapy 3. Hyperlidemia - Pt is at goal on lipitor. --> continue current therapy 4. DM -appreciate hospitalist input 5. BO - appreciate hospitalist input. hyponatremia is improving on fluid restriction Plan:1. ok to tx to flooor and d/c heparin drip 02/15/17 09:34 Subjective: pt seen with his son..he is comfortable and stable overnight...tolerating meds ..ok to tx to floor Objective: Vital Signs Temp Pulse Resp BP Pulse Ox 37.2 C 82 20 108/51 L 98 02/15/17 04:00 02/15/17 08:39 02/15/17 06:00 02/15/17 08:40 02/15/17 06:00 Laboratory Results 02/15/17 04:15 02/15/17 04:15 02/14/17 02/15/17 02/16/17 05:59 05:59 05:59 Intake Total 559 1850 Output Total 725 1250 Balance -166 600 PT 14.0 SEC (12.0-15.0) 02/13/17 19:24 INR 1.09 (0.83-1.16) 02/13/17 19:24 Physical Exam - Physical Exam Respiratory: lungs clear, crackles Cardiac/Chest: normal peripheral pulses, No edema, No JVD ICD10 Worksheet Patient Problems: Problems Problem Status Onset Acute inferior myocardial infarction Acute Hyponatremia Acute Renal failure Acute
[2017-02-15] MEDS ORDERED: FLU VACC QS 2017-18 (3YR+)/PF 0.5 ML SYR (FLUARIX QUAD) IM ONE ×2 (09:54→13:00)
[2017-02-15] MEDS: NITROGLYCERIN PO SCH ×2 (12:35→18:29)
--- NOTE | 2017-02-15 13:06 | ASMTCMCOM ---
CM Note CM Note Notes: Reviewed chart re: d/c poc, pt's progress. Pt transferred from ICU to PCU today. Pt being medically managed for STEMI d/t acute renal failure. Pt to [facility] discharge home independently w/ family support in next few days. CM will cont to follow. Date Signed: 02/15/2017 01:06 PM Electronically Signed By:Nat Dolan RN
[2017-02-15] MEDS: INSULIN LISPRO 100 UNIT/ML SC SCH ×3 (14:42→23:00)
--- NOTE | 2017-02-15 15:01 | HOSPPROG ---
Hospitalist Progress Note Assessment/Plan: 66 yo M w inferior STEMI STEMI: presented after completion w q waves already present per pt and cardiology, medical management stratehy chosed asa/statin/bb/arb on heparin gtt hyponatremia: urine lytes ordered suspect he is chronically low given absence of sx has been on hctz for > 30 years follow fluid restrict suggest permanent dc of hctz iron deficiency anemia: no h/o colonoscopy vegetarian IV iron proph: heparin gtt dm: hold po meds start lispro ss dispo: inpt Subjective: case d/w dr covington. tele: no VT (interp by me) Objective: Vital Signs Temp Pulse Resp BP Pulse Ox 36.7 C 77 15 101/60 100 02/15/17 12:00 02/15/17 12:00 02/15/17 12:00 02/15/17 12:00 02/15/17 12:00 Laboratory Results 02/15/17 04:15 02/15/17 09:51 02/14/17 02/15/17 02/16/17 05:59 05:59 05:59 Intake Total 559 1850 250 Output Total 725 1250 Balance -166 600 250 PT 14.0 SEC (12.0-15.0) 02/13/17 19:24 INR 1.09 (0.83-1.16) 02/13/17 19:24 - Physical Exam Constitutional: no apparent distress, appears nourished Eyes: PERRL, anicteric sclera Ears, Nose, Mouth, Throat: moist mucous membranes, hearing normal Cardiovascular: regular rate and rhythym, no murmur, rub, or gallop Respiratory: no respiratory distress, no rales or rhonchi Gastrointestinal: normoactive bowel sounds, soft, non-tender abdomen Genitourinary: no bladder fullness, No esparza in urethra Skin: warm, normal color Musculoskeletal: full muscle strength, no muscle tenderness Neurologic: AAOx3 ICD10 Worksheet Patient Problems: Problems Problem Status Onset Acute inferior myocardial infarction Acute Hyponatremia Acute Renal failure Acute
[2017-02-15] MEDS: SODIUM FERRIC GLUCONAT/SUCROSE 125 MG in NS 100 ML IV SCH (16:07)
[2017-02-15 16:38] LABS: ANION GAP 7 mEq/L (8-16); CALCIUM 7.6 mg/dL (8.5-10.4); CARBON DIOXIDE 21 mEq/l (22-31); CHLORIDE 87 mEq/L (97-110); GLOMERULAR FILTRATION RATE 33; GLUCOSE 201 mg/dL (70-100); POTASSIUM 4.3 mEq/L (3.5-5.2)
[2017-02-15 16:49] LABS: SODIUM 115 mEq/L (134-144)
--- NOTE | 2017-02-15 17:54 | SOAPPROG ---
SOAP Progress Note Assessment/Plan: Assessment: 1. HypoNa: urine indicates appropriate urinary dilution. Na essentially stable since admit, I suspect heparin infusion in D5W was artificially suppressing any sig Na increase. Heparin now off, will simply follow overnight on po fluid restrict + NaCl tabs. If no better in am would consider judicious saline, but am somewhat reluctant in light of echo findings. Cont holding hctz. 2. arf: b/l creat 1 in November with normal Na. UA neg, suspect this is hemodynamic related to recent NM. Essentially stable since admit but would have low threshold to give judicious saline if no better in am. 3. NM: stable, now off heparin. For medical management. 4. htn: very well controlled, if has further systolic readings in 90's would decrease losartan. Hold hctz in light of hypoNa. Plan: 02/15/17 17:50 Subjective: Transferred to floor. Iv heparin stopped. No c/o, denies any sob/cp, etc. Has not noticed particularly copious uo. Objective: Vital Signs Temp Pulse Resp BP Pulse Ox 36.4 C 81 16 119/74 95 02/15/17 16:00 02/15/17 16:00 02/15/17 16:00 02/15/17 16:00 02/15/17 16:00 Laboratory Results 02/15/17 04:15 02/15/17 16:03 02/14/17 02/15/17 02/16/17 05:59 05:59 05:59 Intake Total 559 1850 250 Output Total 725 1250 Balance -166 600 250 PT 14.0 SEC (12.0-15.0) 02/13/17 19:24 INR 1.09 (0.83-1.16) 02/13/17 19:24 Physical Exam - Physical Exam General Appearance: no apparent distress Respiratory: lungs clear Cardiac/Chest: regular rate, rhythm Abdomen: soft Extremities: pedal edema (none) ICD10 Worksheet Patient Problems: Problems Problem Status Onset Acute inferior myocardial infarction Acute Hyponatremia Acute Renal failure Acute
[2017-02-15] MEDS: ATORVASTATIN PO SCH (21:55)
[2017-02-15] MEDS: [UNRECOGNIZED DRUG - OTHER] PO SCH (21:55)
[2017-02-16 05:49] LABS: ANION GAP 8 mEq/L (8-16); CALCIUM 7.9 mg/dL (8.5-10.4); CARBON DIOXIDE 21 mEq/l (22-31); CHLORIDE 88 mEq/L (97-110); CREATININE 2.1 mg/dL (0.7-1.3); GLOMERULAR FILTRATION RATE 32; GLUCOSE 202 mg/dL (70-100); POTASSIUM 4.3 mEq/L (3.5-5.2)
[2017-02-16 05:51] LABS: SODIUM 117 mEq/L (134-144)
--- NOTE | 2017-02-16 08:49 | SOAPPROG ---
SOAP Progress Note Assessment/Plan: Assessment: SOAP Progress Note Assessment/Plan: 1. IMI - Pt presented with an evolving inferior PR. His event was likely on 02/09 into 02/10 based on history. He was not taken to the catheterization laboratory as he denied symptoms of recurrent angina/CHF and had acute renal insufficiency. Peak CPK was 2046 and has trended down. Peak Troponin was 39.8. LVEF = 35 to 40% with inferior hypokinesis. Pt denies symptoms of angina and CHF. No significant arrhythmias on telemetry monitoring. no specific cv c/o..continue same cv meds --> continue asa, plavix, coreg, losartan, and atorvastatin. --> consider stress test for risk stratification. 2. HTN - BP well controlled on coreg and losartan. --> continue current therapy 3. Hyperlidemia - Pt is at goal on lipitor. --> continue current therapy 4. DM -appreciate hospitalist input 5. BO - still hyponatremic...ok for gently saline hydration from my stanpooint..pt doesn't appear to be in significant chf by exam Plan:1. increase activity.. 02/15/17 09:34 02/16/17 08:44 Subjective: no specific cv c/o overnight pt c/o some joint aches but no cp,sob Objective: Vital Signs Temp Pulse Resp BP Pulse Ox 36.7 C 80 18 115/68 97 02/16/17 07:17 02/16/17 07:17 02/16/17 07:17 02/16/17 07:17 02/16/17 07:17 Laboratory Results 02/15/17 04:15 02/16/17 03:54 02/15/17 02/16/17 02/17/17 05:59 05:59 05:59 Intake Total 1850 1299 Output Total 1250 900 Balance 600 399 PT 14.0 SEC (12.0-15.0) 02/13/17 19:24 INR 1.09 (0.83-1.16) 02/13/17 19:24 Physical Exam - Physical Exam Respiratory: crackles Cardiac/Chest: No edema, No JVD ICD10 Worksheet Patient Problems: Problems Problem Status Onset Acute inferior myocardial infarction Acute Hyponatremia Acute Renal failure Acute
[2017-02-16] MEDS: SODIUM FERRIC GLUCONAT/SUCROSE 125 MG in NS 100 ML IV SCH (09:53)
[2017-02-16] MEDS: ACETAMINOPHEN 325 MG TAB PO PRN ×2 (09:54→18:55)
[2017-02-16] MEDS: LOSARTAN POTASSIUM 50 MG TAB PO SCH (09:57)
[2017-02-16] MEDS: CARVEDILOL 3.125 MG TAB PO SCH ×2 (09:57→18:04)
[2017-02-16] MEDS: CLOPIDOGREL BISULFATE 75 MG TAB PO SCH (09:57)
[2017-02-16] MEDS: ASCORBIC ACID 500 MG TAB PO SCH (12:21)
[2017-02-16] MEDS: MULTIVITAMINS 1 EACH TAB PO SCH (12:21)
[2017-02-16] MEDS: INSULIN LISPRO 100 UNIT/ML SC SCH ×4 (12:21→23:37)
[2017-02-16] MEDS: SODIUM CHLORIDE 1,000 MG TAB PO SCH ×3 (12:22→22:24)
--- NOTE | 2017-02-16 13:04 | HOSPPROG ---
Hospitalist Progress Note Assessment/Plan: 66 yo M w inferior STEMI STEMI: presented after completion w q waves already present per pt and cardiology, medical management stratehy chosed asa/statin/bb/arb heparin dc'd ekg in AM hyponatremia: urine lytes ordered suspect he is chronically low given absence of sx has been on hctz for > 30 years rising slowly will give 1 L NS repeat MARTA: baseline cr 1.0 now 2.1 increase suspect moderate volume depletion +/- ARB effect follow iron deficiency anemia: no h/o colonoscopy vegetarian IV iron proph: start sc heparn in AM dm: hold po meds start lispro ss dispo: inpt Subjective: case d/w adria monson Objective: Vital Signs Temp Pulse Resp BP Pulse Ox 36.9 C 75 18 103/62 96 02/16/17 11:11 02/16/17 11:11 02/16/17 11:11 02/16/17 11:11 02/16/17 11:11 Laboratory Results 02/15/17 04:15 02/16/17 03:54 02/15/17 02/16/17 02/17/17 05:59 05:59 05:59 Intake Total 1850 1299 Output Total 1250 900 Balance 600 399 PT 14.0 SEC (12.0-15.0) 02/13/17 19:24 INR 1.09 (0.83-1.16) 02/13/17 19:24 - Physical Exam Constitutional: no apparent distress, appears nourished Eyes: PERRL, anicteric sclera Ears, Nose, Mouth, Throat: moist mucous membranes, hearing normal Cardiovascular: regular rate and rhythym, no murmur, rub, or gallop, No systolic murmur Respiratory: no respiratory distress, no rales or rhonchi Gastrointestinal: normoactive bowel sounds, soft, non-tender abdomen Genitourinary: no bladder fullness, No esparza in urethra Skin: warm, normal color Musculoskeletal: full muscle strength Neurologic: AAOx3 ICD10 Worksheet Patient Problems: Problems Problem Status Onset Acute inferior myocardial infarction Acute Hyponatremia Acute Renal failure Acute
[2017-02-16] MEDS ORDERED: NS 1,000 ML IV SCH (13:15)
[2017-02-16] MEDS: NITROGLYCERIN PO SCH ×2 (13:25→18:04)
[2017-02-16] MEDS: HEPARIN 5,000 UNIT/0.5 ML SYR SC SCH ×2 (14:19→22:24)
--- NOTE | 2017-02-16 16:59 | SOAPPROG ---
SOAP Progress Note Assessment/Plan: Assessment: 1. HypoNa: urine indicates appropriate urinary dilution. Na now trending up slowly s/p heparin d/c'd. Agree with gentle saline in light of increased creat, will cont q12hr labs, po fluid restrict, NaCl tabs for now. Cont to hold hctz. 2. arf: b/l creat 1 in November with normal Na. UA neg, suspect this is hemodynamic related to recent NH. Creat creeping up, agree with saline. If no better would hold arb. 3. NH: stable, now off heparin. For medical management. 4. htn: very well controlled, low threshold to hold arb if creat no better as above. Hold hctz in light of hypoNa. Plan: 02/15/17 17:50 02/16/17 16:56 Subjective: No c/o, feels very well. Denies any sob/cp. NS infusion started earlier this afternoon. Objective: Vital Signs Temp Pulse Resp BP Pulse Ox 36.6 C 99 16 116/63 95 02/16/17 15:08 02/16/17 15:08 02/16/17 15:08 02/16/17 15:08 02/16/17 15:08 Laboratory Results 02/15/17 04:15 02/16/17 03:54 02/15/17 02/16/17 02/17/17 05:59 05:59 05:59 Intake Total 1850 1299 Output Total 1250 900 Balance 600 399 PT 14.0 SEC (12.0-15.0) 02/13/17 19:24 INR 1.09 (0.83-1.16) 02/13/17 19:24 Physical Exam - Physical Exam General Appearance: no apparent distress Respiratory: decreased breath sounds (?slight @ L base, otherwise cta) Cardiac/Chest: regular rate, rhythm Extremities: pedal edema (none) ICD10 Worksheet Patient Problems: Problems Problem Status Onset Acute inferior myocardial infarction Acute Hyponatremia Acute Renal failure Acute
[2017-02-16] MEDS ORDERED: VITAMIN B COMPLEX 1 EA CAP/TAB PO SCH (21:00)
[2017-02-16] MEDS: ATORVASTATIN PO SCH (22:23)
[2017-02-16] MEDS: [UNRECOGNIZED DRUG - OTHER] PO SCH (22:23)
[2017-02-17] MEDS: ACETAMINOPHEN 325 MG TAB PO PRN (01:12)
[2017-02-17 05:43] LABS: POTASSIUM 4.5 mEq/L (3.5-5.2)
[2017-02-17 05:44] LABS: ANION GAP 9 mEq/L (8-16); CALCIUM 8.1 mg/dL (8.5-10.4); CARBON DIOXIDE 19 mEq/l (22-31); CHLORIDE 95 mEq/L (97-110); CREATININE 2.1 mg/dL (0.7-1.3); GLOMERULAR FILTRATION RATE 32; GLUCOSE 102 mg/dL (70-100); SODIUM 123 mEq/L (134-144)
[2017-02-17] MEDS: HEPARIN 5,000 UNIT/0.5 ML SYR SC SCH ×3 (06:44→21:46)
[2017-02-17] MEDS ORDERED: VITAMIN E 400 MG PO SCH (09:00)
[2017-02-17] MEDS: SODIUM CHLORIDE 1,000 MG TAB PO SCH ×2 (09:42→23:33)
[2017-02-17] MEDS: CLOPIDOGREL BISULFATE 75 MG TAB PO SCH (09:42)
[2017-02-17] MEDS: CARVEDILOL 3.125 MG TAB PO SCH ×2 (09:42→17:42)
[2017-02-17] MEDS: VITAMIN B COMPLEX 1 EA CAP/TAB PO SCH (09:42)
[2017-02-17] MEDS: MULTIVITAMINS 1 EACH TAB PO SCH (09:42)
[2017-02-17] MEDS: ASCORBIC ACID 500 MG TAB PO SCH (09:42)
[2017-02-17] MEDS: VITAMIN E ACETATE 400 UNIT PO SCH (09:46)
[2017-02-17] MEDS: SODIUM FERRIC GLUCONAT/SUCROSE 125 MG in NS 100 ML IV SCH (09:52)
[2017-02-17] MEDS: INSULIN LISPRO 100 UNIT/ML SC SCH ×3 (10:08→23:33)
--- NOTE | 2017-02-17 10:12 | SOAPPROG ---
SOAP Progress Note Assessment/Plan: Assessment/Plan: Hyponatremia: Na up to 123, notes that urine sodium is appropriately low. Concern that he may start to correct rapidly. - Will continue to hold HCTZ. - Will cut down sodium tabs to 1g BID. - Will change fluid restriction to 1500ml daily. - Will continue to monitor q4h for now. MARTA: Cr stable at 2.1, baseline is 1.0 from 11/2016, renal US with no acute findings. Likely caused by hemodynamic changes in relation to [place]. - No need for HD. - Will d/c losartan for now. - Will continue to monitor. - Avoid hypotension and nephrotoxins. HTN: currently well controlled, HCTZ on hold and will d/c losartan as above, will continue to monitor. Subjective: No acute events overnight. Pt states he is feeling better, occasional muscle aches but is walking more, also notes he is urinating more. Objective: Vital Signs Temp Pulse Resp BP Pulse Ox 36.7 C 79 16 128/70 H 99 02/17/17 08:26 02/17/17 08:26 02/17/17 08:26 02/17/17 08:26 02/17/17 08:26 Laboratory Results 02/15/17 04:15 02/17/17 03:54 02/16/17 02/17/17 02/18/17 05:59 05:59 05:59 Intake Total 1299 1535 Output Total 900 990 425 Balance 399 545 -425 PT 14.0 SEC (12.0-15.0) 02/13/17 19:24 INR 1.09 (0.83-1.16) 02/13/17 19:24 General: alert and oriented, no acute distress Eyes: EOMI, PERRL OP: Clear CV: RRR Resp: nonlabored respirations on RA Abd: Soft, NT Ext; no edema BLE Neuro: CN II-XII grossly intact, no asterixis Psych: cooperative, appropriate mood and affect ICD10 Worksheet Patient Problems: Problems Problem Status Onset Acute inferior myocardial infarction Acute Hyponatremia Acute Renal failure Acute
[2017-02-17] MEDS: LOSARTAN POTASSIUM 50 MG TAB PO SCH (11:15)
[2017-02-17] MEDS: NITROGLYCERIN PO SCH ×2 (12:10→17:42)
[2017-02-17] MEDS ORDERED: ASPIRIN EC 81 MG TAB PO SCH (12:15)
--- NOTE | 2017-02-17 12:47 | PDCARPN ---
Cardiology Progress Note Chief Complaint: IMI Assessment/Plan: Assessment: 66-y/o M PMH DM, htn, presented after several days of noting feeling well. Admitted 02/13/17. 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 Symptoms lasted for several days. On day prior to admission, he had fallen and it took 50 minutes to extract him from behind a piece of furniture. Found to be inf STEMI on ECG with troponin elevated to 36. Medical management was adopted as pt was cp-free and pt has likely completed NM with peak Tn 39 and peak CPK 2047. #. STEMI: no recurrent cp/epigastric pain started on med management with ASA, statin, Plavix, and Coreg #. ICM: EF 34% on echo #. MARTA/CKD: Cr 2.1 currently. per renal service holding Losartan and HCTZ #. hyponatremia: unclear chronicity improving with fluid restriction and salt tabs Plan: - cardiology will follow with patient - outpatient plan also reviewed with son present in room 02/17/17 13:14 Subjective: No pain or dyspnea. Reviewed/Discussed With: hospitalist (Dr. Jacobs) Objective: Vital Signs (8 Hrs) Temp Pulse Resp BP Pulse Ox 02/17/17 08:26 98.1 F 79 16 128/70 H 99 Intake/Output (24 Hrs) 02/16/17 02/17/17 02/18/17 05:59 05:59 05:59 Intake Total 1299 1535 Output Total 900 990 575 Balance 399 545 -575 Intake: Oral (ml) 1150 550 IV Intake (ml) 30 IV Infused (ml) 119 985 Ns 1,000 ml @ 100 mls/hr 985 IV CONT JAS Rx#: [id number] Sodium Ferric Gluconat/ 119 Sucrose 125 mg In Ns 100 ml @ 110 mls/hr IV DAILY JAS Rx#:[id number] Output: Urine (ml) 900 990 575 Toilet 200 990 150 Urinal 700 425 Other: Weight 85.786 kg 86.8 kg Number of Voids Toilet 1 1 Urinal 2 1 Number of Stools Toilet 1 Result Diagrams: 02/15/17 04:15 02/17/17 11:20 - Physical Exam Constitutional: healthy appearing, no apparent distress Eyes: PERRL Cardiovascular: regular rate and rhythm, no murmurs Peripheral Pulses: 1+: dorsalis-pedis (R), dorsalis-pedis (L) Respiratory: clear to auscultate bilat, no crackles Gastrointestinal: normoactive bowel sounds, no masses Skin: no rashes, no abrasions, no edema Neurologic: AAOx3 Psychiatric: cooperative ICD10 Worksheet Patient Problems: Problems Problem Status Onset Acute inferior myocardial infarction Acute Hyponatremia Acute Renal failure Acute
--- NOTE | 2017-02-17 13:52 | HOSPPROG ---
Hospitalist Progress Note Assessment/Plan: 66 yo M w inferior STEMI STEMI: presented after completion w q waves already present per pt and cardiology, medical management stratehy chosed asa/statin/bb/arb heparin dc'd ekg in AM hyponatremia: urine lytes ordered suspect he is chronically low given absence of sx has been on hctz for > 30 years improving MARTA: baseline cr 1.0 now 2.1 losartan held follow iron deficiency anemia: no h/o colonoscopy vegetarian IV iron proph: start sc heparn in AM dm: hold po meds start lispro ss dispo: inpt Subjective: case d/w jose stevenson, cardiology PA. tele: no VT (interp by me) Objective: Vital Signs Temp Pulse Resp BP Pulse Ox 36.7 C 79 16 128/70 H 99 02/17/17 08:26 02/17/17 08:26 02/17/17 08:26 02/17/17 08:26 02/17/17 08:26 Laboratory Results 02/15/17 04:15 02/17/17 11:20 02/16/17 02/17/17 02/18/17 05:59 05:59 05:59 Intake Total 1299 1535 Output Total 900 990 975 Balance 399 545 -975 PT 14.0 SEC (12.0-15.0) 02/13/17 19:24 INR 1.09 (0.83-1.16) 02/13/17 19:24 - Physical Exam Constitutional: no apparent distress, appears nourished Eyes: PERRL, anicteric sclera Ears, Nose, Mouth, Throat: moist mucous membranes, hearing normal Cardiovascular: regular rate and rhythym, no murmur, rub, or gallop Respiratory: no respiratory distress, no rales or rhonchi Gastrointestinal: normoactive bowel sounds, soft, non-tender abdomen Genitourinary: no bladder fullness, No esparza in urethra Skin: warm, normal color Musculoskeletal: full muscle strength Neurologic: AAOx3 ICD10 Worksheet Patient Problems: Problems Problem Status Onset Acute inferior myocardial infarction Acute Hyponatremia Acute Renal failure Acute
[2017-02-17] MEDS ORDERED: BENADRYL PO PRN ×2 (14:56→14:57)
[2017-02-17] MEDS: ATORVASTATIN PO SCH (21:46)
[2017-02-17] MEDS: [UNRECOGNIZED DRUG - OTHER] PO SCH (21:46)
[2017-02-18 04:25] LABS: ANION GAP 10 mEq/L (8-16); CALCIUM 8.3 mg/dL (8.5-10.4); CARBON DIOXIDE 19 mEq/l (22-31); CHLORIDE 100 mEq/L (97-110); CREATININE 1.7 mg/dL (0.7-1.3); GLOMERULAR FILTRATION RATE 40; GLUCOSE 221 mg/dL (70-100); SODIUM 129 mEq/L (134-144)
[2017-02-18 08:01] VITALS: RESP 18
[2017-02-18] MEDS: ACETAMINOPHEN 325 MG TAB PO PRN (08:33)
[2017-02-18] MEDS: HEPARIN 5,000 UNIT/0.5 ML SYR SC SCH ×2 (08:33→15:16)
[2017-02-18] MEDS: MULTIVITAMINS 1 EACH TAB PO SCH (08:34)
[2017-02-18] MEDS: ASCORBIC ACID 500 MG TAB PO SCH (08:34)
[2017-02-18] MEDS: CLOPIDOGREL BISULFATE 75 MG TAB PO SCH (08:34)
[2017-02-18] MEDS: VITAMIN B COMPLEX 1 EA CAP/TAB PO SCH (08:34)
[2017-02-18] MEDS: CARVEDILOL 3.125 MG TAB PO SCH (08:34)
[2017-02-18] MEDS: VITAMIN E ACETATE 400 UNIT PO SCH (08:35)
[2017-02-18] MEDS: INSULIN LISPRO 100 UNIT/ML SC SCH ×2 (08:58→13:51)
[2017-02-18] MEDS ORDERED: CARVEDILOL 3.125 MG TAB PO SCH (09:14)
--- NOTE | 2017-02-18 10:09 | SOAPPROG ---
SOAP Progress Note Assessment/Plan: Assessment: 1. MARTA Normal baseline. Thought to be hemodynamic. This is improving. 2. Hyponatremia Gradually resolving. Stop NaCl. Tighten fluid restriction. Should always avoid thiazides; use loops in the future. High protein diet. 3. s/p Inf WI Will ultimately need ARB and diuretic. Would add this on next week. They will follow daily weights. If they start climbing at home, will need to add loop on sooner. Summary -Send home on 1000ml fluid restriction -Daily weights, daily BP's if possible, make log -High protein diet -BMP qMon and Thurs for 4 draws -FU nephrology in 1 week [phone]. thx Plan: 02/18/17 10:00 Objective: Vital Signs Temp Pulse Resp BP Pulse Ox 36.9 C 84 18 140/79 H 94 02/18/17 07:59 02/18/17 08:34 02/18/17 07:59 02/18/17 08:34 02/18/17 07:59 Laboratory Results 02/15/17 04:15 02/18/17 07:12 02/17/17 02/18/17 02/19/17 05:59 05:59 05:59 Intake Total 1535 1205 Output Total 990 5 350 Balance 545 -820 -350 PT 14.0 SEC (12.0-15.0) 02/13/17 19:24 INR 1.09 (0.83-1.16) 02/13/17 19:24 ICD10 Worksheet Patient Problems: Problems Problem Status Onset Acute inferior myocardial infarction Acute Hyponatremia Acute Renal failure Acute
[2017-02-18] MEDS ORDERED: CARVEDILOL 3.125 MG TAB PO ONE (10:45)
--- NOTE | 2017-02-18 10:51 | PDCARPN ---
Cardiology Progress Note Chief Complaint: IMI Assessment/Plan: Assessment: 66-y/o M PMH DM, htn, dyslipidemia, presented after several days of noting feeling well. Admitted 02/13/17. 5 days RESOURCE ROOM TEACHER, he had noted upper chest discomfort radiating into arms with associated nausea and belching. Symptoms lasted for several days. On day prior to admission, he had fallen and it took approximately 50 minutes to extract him from behind a piece of furniture. He presented to the ED 02/13 with multiple aches and pains. Found to be inf STEMI on ECG with troponin elevated to 36. Medical management was adopted as pt was cp -free and pt has likely completed CO with peak Tn 39 and peak CPK 2046. #. STEMI: no recurrent cp/epigastric pain started on med management with ASA, statin, Plavix, and Coreg #. ICM: EF 34% on echo no dyspnea, pnd/orthopnea appears euvolemic currently but will likely need loop diuretic in near future #. MARTA/CKD: Cr 1.7 currently. per renal service holding Losartan and HCTZ #. hyponatremia: unclear chronicity improving with fluid restriction and salt tabs Dr. Preston is d/cing his salt tabs today and further restricting fluids Plan: - titrate Carvedilol today and tomorrow - resume Metformin when OK with renal service 02/18/17 10:51 Subjective: No cp or dyspnea. Reviewed/Discussed With: hospitalist, other (nephrology) Objective: Vital Signs (8 Hrs) Temp Pulse Resp BP Pulse Ox 02/18/17 08:34 84 140/79 H 02/18/17 07:59 98.4 F 84 18 140/79 H 94 02/18/17 04:50 97.7 F 91 16 143/79 H 99 Intake/Output (24 Hrs) 02/17/17 02/18/17 02/19/17 05:59 05:59 05:59 Intake Total 1535 1205 Output Total 992024 350 Balance 545 -820 -350 Intake: Oral (ml) 550 1205 IV Infused (ml) 985 Ns 1,000 ml @ 100 mls/hr 985 IV CONT JAS Rx#: [id number] Output: Urine (ml) 990 2024 350 Toilet 990 1600 350 Urinal 425 Other: Weight 86.8 kg 85.1 kg Intake Quantity Yes Sufficient Number of Voids Toilet 1 Urinal 1 Number of Stools Toilet 1 Result Diagrams: 02/15/17 04:15 02/18/17 07:12 Telemetry: SR - Physical Exam Constitutional: no apparent distress Eyes: anicteric sclera Cardiovascular: regular rate and rhythm, no murmurs Respiratory: clear to auscultate bilat, no crackles Gastrointestinal: normoactive bowel sounds, no tenderness Skin: no rashes, no abrasions Neurologic: AAOx3 Psychiatric: cooperative, interactive ICD10 Worksheet Patient Problems: Problems Problem Status Onset Acute inferior myocardial infarction Acute Hyponatremia Acute Renal failure Acute
[2017-02-18 11:06] VITALS: BP 136/79; PULSE 81; TEMP 98.1; O2SAT 100
[2017-02-18] MEDS: SODIUM CHLORIDE 1,000 MG TAB PO SCH (12:35)
[2017-02-18] MEDS: NITROGLYCERIN PO SCH (12:44)
--- NOTE | 2017-02-18 16:37 | ASDISCHSUM ---
Discharge Information Plan Status:Home with No Needs Medically Cleared to Leave: Discharge Date:02/18/2017 03:55 PM CM D/C Disposition:Home, Routine, Self-Care ADT D/C Disposition:Home, Routine, Self-Care Projected Discharge Date:02/18/2017 03:55 PM Transportation at D/C: Discharge Delay Reason: Follow-Up Date:02/18/2017 03:55 PM Discharge Slot: Final Diagnosis: Placement Information Patient Contact Information Contact Name:AMADO Relationship:Son Address:[address] [email or web address] Work Phone: City:[employer] [place] Alternate Phone: [facility]/Zip Code:[place] [address] Email: Financial Information Financial Class:Commercial Primary Plan Desc:[facility] CLAIMS DEPARTMENT Primary Plan Number:[id number] Secondary Plan Desc: Secondary Plan Number: Assessment Information [facility] Progress Note CM Note CM Note Notes: Chart reviewed, case discussed in rounds. Patient visiting from [facility] and suffered WI with ARF. No angiogram secondary to renal insufficiency. Medical management at this point in time. Good family support, independent prior to admission. No identifiable needs at this point. CM to follow should needs arise. Date Signed: 02/14/2017 02:31 PM Electronically Signed By:Smitha Damon RN [facility] CM Progress Note CM Note CM Note Notes: Reviewed chart re: d/c poc, pt's progress. Pt transferred from ICU to PCU today. Pt being medically managed for STEMI d/t acute renal failure. Pt to [facility] discharge home independently w/ family support in next few days. CM will cont to follow. Date Signed: 02/15/2017 01:06 PM Electronically Signed By:Nat Dolan RN Intervention Information
--- NOTE | 2017-02-18 17:59 | GDS ---
[f rep st] DISCHARGE SUMMARY DISCHARGE DIAGNOSES: 1. ST-elevation myocardial infarction without intervention. 2. Hyponatremia, secondary to a decades of hydrochlorothiazide therapy. 3. Hypertension. 4. Chronic kidney disease. 5. Diabetes. Please see admission history and physical by Dr. Sanjay Harden. The patient presented on the after a couple days of flu-like symptoms. He was found to have a positive troponin with inferior ST eleva tion. He declined straight to the catheterization lab. Managed medically with heparin for a number of days. He had no further chest pain. Troponin trended down. It peaked at 39 and trended down to 38. He was initiated on Plavix. He was already on an aspirin and a statin. He had been hydrochloro thiazide/losartan. The thiazide was discontinued given his presenting sodium of 114. It has trended up over time with fluid restriction and salt tabs. He did not have concern is clinical congestive h eart failure while here. Certainly, his creatinine trended up to 2.1 and ultimately, when his ARB was held, his creatinine cam e down to 1.7 which is his presenting creatinine, close to his baseline. He is discharged home. He has outpatient followup with Cardiology and Nephrology. The patient was found to have microcytic anemia. Iron studies were consistent with iron deficiency. He is a lifelong vegetarian. Was given IV iron. I advised him to get an outpatient colonoscopy. /[id number]/MODL
--- NOTE | 2017-02-19 14:26 | ECHO ---
[email or web address] [address] [address] Main: [phone] Fax: Transthoracic Echocardiogram Name: GENESIS PETERSON MR#: [id number] Study Date: 02/13/2017 Study Time: 08:48 PM Date of : 1950 Age: 66 year(s) Height: ( ) Weight: ( ) BSA: Gender: Male Examination: Limited Echo Indication: limited stat echo in ER to assess for WMA Image Quality: Adequate Contrast: Requested by: Norman Chris BP: / Heart Rate: Rhythm: Indication: limited stat echo in ER to assess for WMA Procedure Staff Churn Operator Margarine: Mahi Walter Reading Physician: Landon Houser Requesting Provider: Norman Chris Conclusions: Acute inferior wall myocardial infarction with ejection fraction of 40% and inferior regional wall motion abnormalities. Measurements: Chambers Valvular Assessment AV/MV Valvular Assessment TV/PV Normal Normal Normal Name Value Range Name Value Range Name Value Range Visual EF: 40 % Continued Measurements: Findings: Left Ventricle: Normal size left ventricle. Mildly reduced systolic LV function. The ejection fraction is visually estimated to be 40 %. Regional wall motion abnormality noted. The basal inferoseptal, basal inferior, basal inferolateral, mid inferoseptal, mid inferior and mid inferolateral wall segments are hypokinetic. All remaining scored wall segments are normal. Pericardium: No pericardial effusion. (No Signature Object) Wall Motion Scores Patient: GENESIS PETERSON Study Date: 02/13/2017 Page 1 of 2 08:48 PM -1 - Not Scored, 0 - Unknown, 1 - Normal or hyperkinesia, 2 - Hypokinesia, 3 - Akinesia, 4 - Dyskinesia, 5 - Aneurysm Patient: GENESIS PETERSON Study Date: 02/13/2017 Page 2 of 2 08:48 PM [id number]
== END 2017-02-18 15:55 | disposition home or self-care (01) | DRG 281 ==
LOC: F2N 21:27 → F2W 02-15 10:10
PROVIDERS: ADMIT Internal Medicine Cardiovascular Disease; ATTEND Internal Medicine Cardiovascular Disease
DX: I21.19 ST elevation (STEMI) myocardial infarction involving other coronary artery of inferior wall (principal); N17.9 Acute kidney failure, unspecified; E87.1 Hypo-osmolality and hyponatremia; D50.9 Iron deficiency anemia, unspecified; E11.9 Type 2 diabetes mellitus without complications; I10 Essential (primary) hypertension; E78.5 Hyperlipidemia, unspecified
CPT/HCPCS: 82947-QW; 85520-90; 97161-GP; 97165-GO; G0008; G8978-GP-CI; G8979-GP-CI; G8980-GP-CI; J1644; J1815; J2250; J2916; J3010; Q9957; Q9967